=== PATIENT | male | born 1960 | race Caucasian/White ===

== ENCOUNTER → 2018-08-15 | Outpatient (CLI) | payer MEDICARE, BC ==
--- NOTE | 2018-08-27 21:04 | ENG ---
ELECTRONYSTAGMOGRAM REPORT ATTENDING PHYSICIAN: Dr. Bronson Farfan. VNG INDICATIONS: A 58-year-old male with vertigo for 1 year, gradual onset, occurring in spells lasting 15-20 seconds each and can be positionally triggered by just about any position except rolling over in bed. No associated hearing loss with pain in the right ear and tinnitus in both ears. VNG FINDINGS: Saccades shows fair peak velocities season, poor accuracies and latencies. Gaze with fixation shows no nystagmus in any of the directions of gaze including centrally with vision denied. Tracking shows no significant break-ups. Optokinetic nystagmus shows significant asymmetry more than 50% at faster speeds on the right. Static position testing shows no nystagmus in any of the positions tested including sitting, supine, head right and left, eyes opened and with vision denied. Muldrow-Hallpike maneuvers could not be completed due to patient back pain. Caloric testing shows bilateral caloric weakness. IMPRESSION: This is an abnormal VNG study. Central nervous system dysfunction is suggested by an abnormal saccades and abnormal asymmetric optokinetic response. A vestibular dysfunction could not be excluded due to bilateral caloric weakness. Another test such as head thrust test or if available active and passive rotation testing is required to confirm presence of bilateral vestibular dysfunction. Clinical correlation advised. MMODL / IJN: [id number] /
== END | disposition home or self-care (01) ==
LOC: NEUROMAIN 08:50
PROVIDERS: ATTEND Otolaryngology
DX: R94.121 Abnormal vestibular function study (principal)
CPT/HCPCS: 92537; 92540

== ENCOUNTER 2018-08-27 10:21 | Day surgery (SDC) | payer MEDICARE, BC ==
[2018-08-24 09:33] VITALS: BMI 31.3
[~2018-08-27 10:21] MED LIST: DEXAMETHASONE SOD PHOSPHATE 10 MG/ML 1 ML VIAL IV ONE; HYDROmorphone 0.5 MG/0.5 ML SYRINGE IVP PRN; LACTATED RINGERS 1,000 ML IV SCH; MIDAZOLAM 2 MG/2 ML VIAL IV PRN; ONDANSETRON 4 MG/2 ML VIAL IVP ONE; Pre Op ABX Message 1 EACH MISC MISCELLANE ONE; SCOPOLAMINE 1.5MG/72HR PATCH TRANSDERM ONE
[2018-08-27 11:07] VITALS: RESP 18; TEMP 98.1
[2018-08-27 11:17] LABS: Glucose,Whole Blood 244 mg/dL (75-99)
[2018-08-27] MEDS ORDERED: SODIUM CHLORIDE 0.9% 500 ML 500 ML IV ONE (11:20)
--- NOTE | 2018-08-27 11:41 | P.ONQ ---
Anesthesiology Proc Note - PNB - Peripheral Nerve Block Performed Right Axillary Single Time Out Performed: Yes Procedure Start Time: :29 Procedure Stop Time: :38 Indication: Acute Post-Operative Pain, Requested by physician (Dr García) Sedation Type: Sedate with meaningful contact maintained Preparation: Sterile Prep Position: Supine Catheter: None Needle Types: Facet Needle Size: 100mm (4") Needle Gauge: 21 Technique: Ultrasound (Image saved in chart) Injectate: 2.0% Lidocaine (see comment for volume) (10 ml) Blood Aspirated: No Pain Paresthesia on Injection Noted: No Resistance on Injection: Normal Events: Uneventful and Well Tolerated
[2018-08-27] MEDS ORDERED: ROPIVACAINE 5 MG/ML 30 ML VIAL MISCELLANE ONE ×2 (12:04→12:30)
[2018-08-27] MEDS ORDERED: LIDOCAINE 2% (PF) 20 MG/ML 10 ML AMP SQ ONE ×2 (12:04→12:30)
[2018-08-27] MEDS ORDERED: PROPOFOL 10 MG/ML 20 ML VIAL IV ONE (12:41)
[2018-08-27] MEDS ORDERED: hydrALAZINE HCL 20 MG/ML 1 ML VIAL ONE (12:41)
[2018-08-27] MEDS ORDERED: fentaNYL (PF) 50 MCG/ML 2 ML AMP ONE (12:41)
[2018-08-27] MEDS ORDERED: LIDOCAINE 1% INJ 10MG/ML (20 ML MDV) ONE ×2 (12:41)
[2018-08-27] MEDS ORDERED: MIDAZOLAM 2 MG/2 ML VIAL ONE (12:41)
[2018-08-27] MEDS ORDERED: LABETALOL 5 MG/ML VIAL MDV ONE (12:41)
[2018-08-27] MEDS ORDERED: ROPIVACAINE 5 MG/ML 30 ML VIAL ONE (12:41)
[2018-08-27 14:06] LABS: Glucose,Whole Blood 241 mg/dL (75-99)
[2018-08-27 14:13] VITALS: BP 139/70; PULSE 73
--- NOTE | 2018-08-27 19:43 | OP ---
OPERATIVE REPORT DATE OF SERVICE: 08/27/2018 PREOPERATIVE DIAGNOSES: 1. Dupuytren's contracture, left hand, left ring finger, left little finger, and left thumb. 2. Carpal tunnel syndrome, left wrist. FINAL DIAGNOSES: 1. Dupuytren's contracture left hand, left ring finger, left little finger, and left thumb. 2. Carpal tunnel syndrome left wrist. 3. 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 PROCEDURE PERFORMED: 1. Excision of Dupuytren's tissue, palm of the left hand, left little finger, left ring finger and left thumb. 2. Neurolysis, digital nerve to the left little finger. 3. Carpal tunnel release, left wrist. 4. Arthrotomy and release of the check rein ligaments volar PIP joint, left little finger. GROSS PATHOLOGY: This was an extensive amount of Dupuytren's causing contractures of the ring and little at the PIP joints. There was also a band to the thenar eminence restricting the range of motion of his thumb. At the completion of procedure, his digital nerves were in view for the ring and little fingers. A limited approach was taken to the thenar eminence and the thumb. PROCEDURE: 58-year-old man was taken operative suite and given IV sedation to supplement axillary block performed by Department of Anesthesia in the preop holding area, which worked very well. His hand was prepped and draped in usual manner. It was elevated, exsanguinated and cuff was inflated to 250 mmHg. A standard open carpal tunnel incision through a mini open incision was performed in the mid proximal palm. Both palmar fascia and transverse carpal ligaments were incised under direct vision. Limited view of the carpal canal demonstrated no abnormality. Attention was then turned to the Dupuytren's. Beginning proximally and extending distally, zigzag incision was made across the palm into the little finger. It was extended toward the ring finger. The digital nerves and vessels were identified proximally and traced distally under 4.5 loupe magnification as the palmar fascia was excised with a combination of blunt and sharp dissection. As the dissection was carried into the base of the ring finger, I was then able to close, manipulate the PIP joint. I suspect he had developed a joint contracture with limited Dupuytren's at the PIP joint per se. There was extensive Dupuytren's in the little finger beyond the PIP joint. After it was excised, we still had a 40 degree joint contracture. Therefore, exposure at the volar PIP joint on either side of flexor tendons was performed to incise and release the check rein ligaments. Gentle manipulation then allowed into the thumb and the extension. Cut along the thenar eminence there was a palpable cord. A limited longitudinal incision was made to expose the Dupuytren's fascia which was incised transversely. All wounds were thoroughly irrigated. Tourniquet was released. Hemostasis acquired with pressure and electrocautery. Wounds were closed with interrupted and running 5-0 nylon suture. Several drainage areas were left open by design. Soft bulky dressing was applied. The patient was taken to the recovery room in satisfactory condition. MMODL / IJN: [id number] /
--- NOTE | 2018-08-29 12:38 | CDI ---
Outpatient Documentation Clarification Form Date: 08/29/18 CDS/Mechanical Service Representative Name: Keyana Redmond Phone: If any questions, call Estephania Barrera Water Pumper at [phone] Patient Name: Francis Lundy Admit Date: 08/27/18 Discharge Date: 08/27/18 ATTENTION: The [facility] Coding Staff appreciate your assistance in clarifying documentation. Please respond to the clarification below the line at the bottom and electronically sign. The [facility] Coding staff will review the response and follow-up if needed. Please note: Queries are made part of the Legal Health Record. If you have any questions, please contact the Water Pumper. Dear Dr. García, The anesthesiology note states that the anesthesiologist performed a right axillary block for the purposes of post-op pain management. The patient had surgery on his left wrist and hand. Was there a different purpose for the block or was it actually performed on the left, and not right? Thank you for your kind consideration. MTDD
== END 2018-08-27 15:26 | disposition home or self-care (01) ==
LOC: OR 10:21
PROVIDERS: ATTEND Orthopaedic Surgery Hand Surgery
DX: M72.0 Palmar fascial fibromatosis [Dupuytren] (principal); G56.03 Carpal tunnel syndrome, bilateral upper limbs; M19.042 Primary osteoarthritis, left hand; M19.041 Primary osteoarthritis, right hand; M21.242 Flexion deformity, left finger joints; I12.0 Hypertensive chronic kidney disease with stage 5 chronic kidney disease or end stage renal disease; N18.6 End stage renal disease; E11.22 Type 2 diabetes mellitus with diabetic chronic kidney disease; E11.40 Type 2 diabetes mellitus with diabetic neuropathy, unspecified; E78.5 Hyperlipidemia, unspecified; E03.9 Hypothyroidism, unspecified; H40.9 Unspecified glaucoma; F32.9 Major depressive disorder, single episode, unspecified; R45.0 Nervousness; R26.81 Unsteadiness on feet; G47.33 Obstructive sleep apnea (adult) (pediatric); F41.9 Anxiety disorder, unspecified; Z79.4 Long term (current) use of insulin; Z79.899 Other long term (current) drug therapy; Z79.52 Long term (current) use of systemic steroids
CPT/HCPCS: 64721; 26123; 26125 ×2; 64417; 88304; 84132; J2250; J0360; J1100; J2405; J2001; J3010; J2795; J2704

== ENCOUNTER → 2018-10-02 | Outpatient (CLI) | payer MEDICARE, BC ==
--- NOTE | 2018-10-02 14:34 | MR ---
EXAMINATION TYPE: MR iac wo con DATE OF EXAM: 10/02/2018 COMPARISON: NONE HISTORY: Vertigo and vestibular dysfunction ataxia per order. Dizziness per patient. TECHNIQUE: Multiplanar, multisequence imaging of the brain and brainstem is performed without IV cont rast. IV contrast cannot be given due to diminished renal function, GFR less than 30. Acoustic nerve disorder protocol. FINDINGS: Diffusion weighted images demonstrate no evidence of a recent infarct or other diffusion abnormality. There is no worrisome extra-axial fluid collection. There is ventricular and sulcal prominence consis tent with mild diffuse age-related cerebral atrophy. There are scattered small foci of T2 hyperintens ity seen throughout the superficial, deep, and periventricular white matter. Lesions are nonspecific in appearance and distribution but most likely on basis of product of chronic small vessel ischemic c hange in patient of this age. There is some involvement in the caleb are noted. Midline structures demonstrate normal morphology. The craniocervical junction appears within normal limits. Normal vascular flow voids are present. The visualized sinuses are clear and the globes are i ntact. No significant fluid signal seen in bilateral mastoid air cells. Vestibulocochlear complexes are symm etric and felt within normal limits IMPRESSION: Suboptimal without IV contrast. No suspicious mastoid fluid signal. Background mild diffu se age-related cerebral atrophy and moderate nonspecific white matter changes most likely on basis of product of chronic small vessel ischemic change in patient of this age.
== END | disposition home or self-care (01) ==
LOC: RADMRIMAIN 12:38
PROVIDERS: ATTEND Otolaryngology
DX: G31.1 Senile degeneration of brain, not elsewhere classified (principal); R90.89 Other abnormal findings on diagnostic imaging of central nervous system; R27.0 Ataxia, unspecified; H81.13 Benign paroxysmal vertigo, bilateral
CPT/HCPCS: 70551; 82565

== ENCOUNTER → 2019-02-04 | Outpatient (CLI) | payer MEDICARE, BC ==
--- NOTE | 2019-02-04 09:38 | CT ---
EXAMINATION TYPE: CT brain w con DATE OF EXAM: 02/04/2019 COMPARISON: None HISTORY: Headaches and dizziness CT DLP: 1064.3 mGycm Automated exposure control for dose reduction was used. CONTRAST: CT scan of the head is performed with IV Contrast, patient injected with 100 mL of Isovue 300. FINDINGS: There is no abnormal enhancing mass or midline shift identified. The ventricles and sulci are mildly enlarged for the patient's age group. Periventricular white matter ischemic demyelination noted. The globes are intact and the visualized sinuses are clear. IMPRESSION: No enhancing lesion identified. No distinct acute process seen.
== END | disposition home or self-care (01) ==
LOC: RADCTMAIN 08:38
PROVIDERS: ATTEND Internal Medicine Nephrology
DX: N18.6 End stage renal disease (principal)
CPT/HCPCS: 70460; Q9967

== ENCOUNTER 2020-10-20 02:51 | Inpatient (IN) | payer MEDICARE, BC ==
--- NOTE | 2020-10-20 02:54 | ED ---
Recheck HPI - General Stated Complaint: Infection Time Seen by Provider: 10/20/20 02:53 Source: RN notes reviewed, old records reviewed Limitations: no limitations - History of Present Illness Initial Comments: This is a 60-year-old male to the ER for evaluation patient to the ER for evaluation regards to right thumb injury and pain, swelling. Patient admits to some injury from hitting it with a hammer a few weeks ago. Patient having persistent pain he did lose the nail and presents to multiple ERs in the last 2 days. Patient did have x-rays confirming possible loss and myelitis is transferred her facility rule out osteomyelitis Complaint: wound re-check -: days(s) Returns Today for: persistent/worsening pain related to initial visit Symptoms Since Prior Visit: worsening pain Context: planned re-check Associated Symptoms: none Treatments Prior to Arrival: Given Pain Meds on - Related Data Home Medications Medication Instructions Recorded Confirmed Atorvastatin [Lipitor] 20 mg PO HS 08/24/18 08/27/18 Calcium Carb-Mag Carb-Folic 1 each PO TID-W/MEALS 08/24/18 08/27/18 [Magnebind 400 Rx] Citalopram Hydrobromide [CeleXA] 40 mg PO HS 08/24/18 08/24/18 Insulin Detemir [Levemir Flextouch] 50 units SQ HS 08/24/18 08/27/18 Insulin Lispro [humaLOG Kwikpen] 60 unit SQ TID-W/MEALS 08/24/18 08/27/18 Losartan Potassium [Cozaar] 50 mg PO HS 08/24/18 08/27/18 Omeprazole [PriLOSEC] 20 mg PO HS 08/24/18 08/24/18 Prednisolone Acetate/Pf 1 drop RIGHT EYE BID PRN 08/24/18 08/27/18 [Prednisolone Acet 1% Eye Drop] Renal Vitamin 1 tab PO HS 08/24/18 hydrALAZINE HCL [Apresoline] 25 mg PO TID 08/24/18 08/27/18 Allergies Allergy/AdvReac Type Severity Reaction Status Date / Time No Known Allergies Allergy Verified 08/24/18 08:24 Review of Systems ROS Statement: Those systems with pertinent positive or pertinent negative responses have been documented in the HPI. ROS Other: All systems not noted in ROS Statement are negative. Past Medical History Past Medical History: Blood Disorder, Cancer, Diabetes Mellitus, Eye Disorder, GERD/Reflux, Hypertension, Renal Disease, Sleep Apnea/CPAP/BIPAP Additional Past Medical History / Comment(s): HEMODIALYSIS EVERY MONDAY,MONDAY AND MONDAY., FISTULA RIGHT ARM, HX OF SKIN CANCER., USES C-PAP MACHINE, NEUROPATHY IN HANDS AND FEET, OCCASIONAL DIZZINESS AND BALANCE PROBLEMS., HX OF FALLS., GLAUCOMA RIGHT EYE., STENT RIGHT EYE., SORES ON LEGS., WARM ANTIBODY ANEMIA. History of Any Multi-Drug Resistant Organisms: None Reported Past Surgical History: Back Surgery Additional Past Surgical History / Comment(s): PERITONEAL DIALYSIS CATHETERS, DETACHED RETINA MARTHA, GLAUCOMA PROCEDURES, STENT RIGHT EYE., CATARACTS, FISTULA RIGHT ARM. Past Anesthesia/Blood Transfusion Reactions: No Reported Reaction Past Psychological History: Depression Past Alcohol Use History: None Reported Past Drug Use History: None Reported - Past Family History Brother(s) Family Medical History: Cancer Additional Family Medical History / Comment(s): 1 BROTHER STOMACH CANCER. 1 BROTHER THROAT CANCER General Exam General appearance: alert, in no apparent distress Head exam: Present: atraumatic, normocephalic, normal inspection Eye exam: Present: normal appearance, PERRL, EOMI. Absent: scleral icterus, conjunctival injection, periorbital swelling ENT exam: Present: normal exam, mucous membranes moist Neck exam: Present: normal inspection. Absent: tenderness, meningismus, lymphadenopathy Respiratory exam: Present: normal lung sounds bilaterally. Absent: respiratory distress, wheezes, rales, rhonchi, stridor Cardiovascular Exam: Present: regular rate, normal rhythm, normal heart sounds. Absent: systolic murmur, diastolic murmur, rubs, gallop, clicks GI/Abdominal exam: Present: soft, normal bowel sounds. Absent: distended, tenderness, guarding, rebound, rigid Extremities exam: Present: normal inspection, full ROM, normal capillary refill. Absent: tenderness, pedal edema, joint swelling, calf tenderness Right General: Present: abrasion (Moroccan from hammer), nail injury (#) (Right thumb), avulsion (Of right thumb nail) Shoulder Exam: Present: normal inspection Upper Arm exam: Present: normal inspection Elbow exam: Present: normal inspection Forearm Wrist exam: Present: normal inspection Hand Wrist exam: Present: normal inspection Back exam: Present: normal inspection Neurological exam: Present: alert, oriented X3, CN II-XII intact Psychiatric exam: Present: normal affect, normal mood Skin exam: Present: warm, dry, intact, normal color. Absent: rash Course Vital Signs 10/20/20 02:53 Temperature 98.3 F Pulse Rate 86 Respiratory 17 Rate Blood Pressure 127/77 O2 Sat by Pulse 98 Oximetry - Reevaluation(s) Reevaluation #1: 10/20/20 03:15 Medical records reviewed 10/20/20 03:15 Transferring paperwork is reviewed with no white count 10/20/20 03:15 Spoke with transferring physician regarding transfer Medical Decision Making - Medical Decision Making 60 male DF for evaluation patient Dese for evaluation of right thumb injury was actually accepted in transfer for orthopedic consult. Patient had x-rays showing possible osteomyelitis of right thumb - Radiology Data Radiology results: report reviewed (Possible osteomyelitis right thumb) Disposition Clinical Impression: Cellulitis of right thumb Narrative: ro Osteomyelitis Disposition: ADMITTED IP TO THIS [facility] Condition: Good Is patient prescribed a controlled substance at d/c from ED?: No Referrals: Chris Mackey MD [Primary Care Provider] - 1-2 days
[2020-10-20] MEDS ORDERED: SODIUM CHLORIDE 0.9% 1,000 ML IV ONE (03:11)
[2020-10-20] MEDS ORDERED: cefTRIAXone IN SWFI 1,000 MG/10 ML SYRINGE IVP STA (03:11)
[2020-10-20] MEDS ORDERED: MORPHINE SULFATE 4 MG/ML SYRINGE IVP STA (03:11)
--- NOTE | 2020-10-20 04:00 | P.HPIM ---
History of Present Illness H&P Date: 10/20/20 Patient is a 60-year-old male with a PMH of ESRD on hemodialysis (TTS), type II DM, hypertension, and peripheral neuropathy who was transferred to the emergency room from [facility] for evaluation of the right thumb. The patient reports that he injured his right thumb roughly 2 months ago when he accidentally smashed it with a hammer while working on some things around the house. He did not seek medical attention at that time, until his nail fell off and the pain became significantly worse. He reports that his right hand also seemed more swollen and painful than usual. He reports the pain as intermittent, located at the right thumb, nonradiating, 10 out of 10 at maximal intensity, currently at a 4 out of 10, with no clear alleviating or exacerbating features. Patient also reports subjective fevers at home. The patient also reports that over the past 1-2 months, he has been experiencing 3 pillow orthopnea and PND. He notes chronic LE edema unchanged from prior. Denied chest pain, shortness of breath, nausea, vomiting, diaphoresis, abdominal pain, or diarrhea. The patient had undergone an extensive evaluation at [facility] which was all reviewed in the chart. Laboratory evaluation had revealed obesity count of 8.5, hemoglobin 10.4, platelets 143, sodium 127, potassium 5.2, chloride 90, CO2 28, BUN 38, creatinine 4.33, glucose 336. A right hand x-ray had revealed soft tissue swelling with erosive changes at the first distal phalanx which was no nspecific with findings possibly representing osteomyelitis versus less likely trauma. Review of Systems Pertinent positives and negatives as discussed in HPI, a complete review of systems was performed and all other systems are negative. Past Medical History Past Medical History: Blood Disorder, Cancer, Diabetes Mellitus, Eye Disorder, GERD/Reflux, Hypertension, Renal Disease, Sleep Apnea/CPAP/BIPAP Additional Past Medical History / Comment(s): HEMODIALYSIS EVERY MONDAY,MONDAY AND MONDAY., FISTULA RIGHT ARM, HX OF SKIN CANCER., USES C-PAP MACHINE, NEUROPATHY IN HANDS AND FEET, OCCASIONAL DIZZINESS AND BALANCE PROBLEMS., HX OF FALLS., GLAUCOMA RIGHT EYE., STENT RIGHT EYE., SORES ON LEGS., WARM ANTIBODY ANEMIA. History of Any Multi-Drug Resistant Organisms: None Reported Past Surgical History: Back Surgery Additional Past Surgical History / Comment(s): PERITONEAL DIALYSIS CATHETERS, DETACHED RETINA MARTHA, GLAUCOMA PROCEDURES, STENT RIGHT EYE., CATARACTS, FISTULA RIGHT ARM. Past Anesthesia/Blood Transfusion Reactions: No Reported Reaction Past Psychological History: Depression Past Alcohol Use History: None Reported Past Drug Use History: None Reported - Past Family History Brother(s) Family Medical History: Cancer Additional Family Medical History / Comment(s): 1 BROTHER STOMACH CANCER. 1 BROTHER THROAT CANCER Medications and Allergies Home Medications Medication Instructions Recorded Confirmed Type Atorvastatin [Lipitor] 20 mg PO HS 08/24/18 08/27/18 History Calcium Carb-Mag Carb-Folic 1 each PO TID-W/MEALS 08/24/18 08/27/18 History [Magnebind 400 Rx] Citalopram Hydrobromide [CeleXA] 40 mg PO HS 08/24/18 08/24/18 History Insulin Detemir [Levemir Flextouch] 50 units SQ HS 08/24/18 08/27/18 History Insulin Lispro [humaLOG Kwikpen] 60 unit SQ TID-W/MEALS 08/24/18 08/27/18 History Losartan Potassium [Cozaar] 50 mg PO HS 08/24/18 08/27/18 History Omeprazole [PriLOSEC] 20 mg PO HS 08/24/18 08/24/18 History Prednisolone Acetate/Pf 1 drop RIGHT EYE BID PRN 08/24/18 08/27/18 History [Prednisolone Acet 1% Eye Drop] Renal Vitamin 1 tab PO HS 08/24/18 History hydrALAZINE HCL [Apresoline] 25 mg PO TID 08/24/18 08/27/18 History Allergies Allergy/AdvReac Type Severity Reaction Status Date / Time No Known Allergies Allergy Verified 08/24/18 08:24 Physical Exam Vitals: Vital Signs Temp Pulse Resp BP Pulse Ox 10/20/20 02:53 98.3 F 86 17 127/77 98 Intake and Output 10/19/20 10/19/20 10/20/20 14:59 22:59 06:59 Other: Weight 124 kg General: non toxic, no distress, appears at stated age, obese Derm: Right thumb missing male with granulation tissue with erythema and tenderness, no unusual ecchymoses, warm, dry Head: atraumatic, normocephalic, symmetric Eyes: EOMI, no lid lag, anicteric sclera, pupils equal round reactive to light ENT: Nose and ears atraumatic, no thrush, no pharyngeal erythema Neck: No thyromegaly, no cervical lymphadenopathy, trachea midline, supple Mouth: no lip lesion, mucus membranes moist Cardiovascular: S1S2 reg, no murmur, positive posterior tibial pulse bilateral, 1+ bilateral lower extremity pitting edema with chronic venous stasis changes, capillary refill less than 2 seconds Lungs: CTA bilateral, no rhonchi, no rales , no accessory muscle use Abdominal: soft, nontender to palpation, no guarding, no appreciable organomegaly, normal bowel sounds Ext: Right forearm AV fistula with palpable thrill, right hand swelling with right thumb tenderness noted, decreased range of motion for passive flexion of right hand and digits, no gross muscle atrophy, muscle strength 5 out of 5 in all 4 extremities grossly, no contractures Neuro: CN II-XI grossly intact, light touch intact all 4 extremities, finger to nose within normal limits Psych: Alert, oriented, appropriate affect Assessment and Plan Plan: Hx of R hand trauma, suspected osteomyelitis -Continue ceftriaxone for now -Orthopedic surgery consult -Follow up blood cultures Orthopnea and PND, suspected CHF with underlying ESRD -Obtain echocardiogram -Start Lasix 40 mg q8h -- patient continues to produce urine Type II DM -Check A1c -Lispro insulin sliding scale with blood glucose monitoring ESRD on HD -Last session was today -Patient will need resumption Chronic conditions: HTN, HLD -C/w home meds DVT prophylaxis -Heparin subq The patient is admitted with an anticipated greater than 2 midnight stay for evaluation of R hand osteomyelitis CODE STATUS: Full Code Discussed with: Patient, RN Anticipated discharge date: 2-[address]: Home A total of 40 minutes was spent on the care of this complex patient more than 50% of the time was spent in counseling and care coordination.
[2020-10-20 06:07] LABS: HCT 31.4 % (39.0-53.0); HGB 10.6 gm/dL (13.0-17.5); MCH 30.1 pg (25.0-35.0); MCHC 33.8 g/dL (31.0-37.0); MCV 89.2 fL (80.0-100.0); Mean Platelet Volume 7.7; Platelet Count 140 k/uL (150-450); RBC 3.52 m/uL (4.30-5.90); RDW 14.9 % (11.5-15.5); WBC 8.9 k/uL (3.8-10.6)
[2020-10-20 07:52] LABS: Glucose,Whole Blood 130 mg/dL (75-99)
[2020-10-20] MEDS ORDERED: FUROSEMIDE 10 MG/ML 4 ML VIAL IV SCH (08:00)
[2020-10-20] MEDS: INSULIN ASPART (NovoLOG) 100 UNIT/ML VIAL SQ SCH ×3 (08:28→18:09)
[2020-10-20] MEDS: HEPARIN SODIUM,PORCINE 5,000 UNIT/ML 1 ML VIAL SQ SCH ×2 (08:37→16:56)
[2020-10-20] MEDS: MORPHINE SULFATE 4 MG/ML SYRINGE IVP PRN ×2 (08:50→19:34)
[2020-10-20 10:31] LABS: African American GFR (CKD) 13.9 (60.0-200.0); Albumin/Globulin Ratio 1.82 (1.60-3.17); Anion Gap 11.2 mmol/L (4.00-12.00); BUN/Creat Ratio 9.39 Ratio (12.00-20.00); Calcium 8.8 mg/dL (8.7-10.3); Carbon Dioxide 27.8 mmol/L (21.6-31.8); Globulin 2.2 g/dL (1.6-3.3); Potassium 5.1 mmol/L (3.5-5.5); Total Bilirubin 0.7 mg/dL (0.3-1.2); Total Protein 6.2 g/dL (6.2-8.2)
--- NOTE | 2020-10-20 11:12 | P.NPCON ---
History of Present Illness - Reason for Consult end stage renal disease - History of Present Illness Reason for consultation: End-stage renal disease History of present illness: Patient is a 60-year-old male seen in consultation for end-stage renal disease. He is maintained on hemodialysis on Monday schedule via right upper extremity AV fistula. Patient presented to the hospital for evaluation of his right thumb. Patient states he injured his thumb about 2 months ago by hitting it with a hammer at his house. Patient was having more pain and swelling in his right hand. He denies any drainage. Patient states his nail fell off. Weeks ago. He had an x-ray done which was concerning for osteomyelitis and was subsequently sent here for further care. He did have hemodialysis yesterday due to the holiday schedule. He is currently receiving IV Lasix as well as IV fluids. Denies chest pain or shortness of breath. No fever or chills. No vomiting. Blood pressure is stable. No abdominal pain. Vital signs are stable. General: The patient appeared well nourished and normally developed. HEENT: Head exam is unremarkable. Neck is without jugular venous distension. LUNGS: Breath sounds decreased. HEART: Rate and Rhythm are regular. ABDOMEN: Soft, nontender. EXTREMITITES: Trace edema. Chronic changes noted. Right hand swollen. Right thumb without any drainage. Discoloration noted. Past Medical History Past Medical History: Blood Disorder, Cancer, Diabetes Mellitus, Eye Disorder, GERD/Reflux, Hypertension, Renal Disease, Sleep Apnea/CPAP/BIPAP Additional Past Medical History / Comment(s): HEMODIALYSIS EVERY MONDAY,MONDAY AND MONDAY., FISTULA RIGHT ARM, HX OF SKIN CANCER., USES C-PAP MACHINE, NEUROPATHY IN HANDS AND FEET, OCCASIONAL DIZZINESS AND BALANCE PROBLEMS., HX OF FALLS., GLAUCOMA RIGHT EYE., STENT RIGHT EYE., SORES ON LEGS., WARM ANTIBODY ANEMIA. History of Any Multi-Drug Resistant Organisms: None Reported Past Surgical History: Back Surgery Additional Past Surgical History / Comment(s): PERITONEAL DIALYSIS CATHETERS, DETACHED RETINA MARTHA, GLAUCOMA PROCEDURES, STENT RIGHT EYE., CATARACTS, FISTULA RIGHT ARM. Past Anesthesia/Blood Transfusion Reactions: No Reported Reaction Past Psychological History: Depression Past Alcohol Use History: None Reported Past Drug Use History: None Reported - Past Family History Brother(s) Family Medical History: Cancer Additional Family Medical History / Comment(s): 1 BROTHER STOMACH CANCER. 1 BROTHER THROAT CANCER Medications and Allergies Home Medications Medication Instructions Recorded Confirmed Type Atorvastatin [Lipitor] 20 mg PO HS 08/24/18 10/20/20 History Citalopram Hydrobromide [CeleXA] 40 mg PO HS 08/24/18 10/20/20 History Omeprazole [PriLOSEC] 20 mg PO HS 08/24/18 10/20/20 History Amoxic-Pot Clav 500-125 mg 1 tab PO Q12HR 10/20/20 10/20/20 History [Augmentin 500-125 mg] Calcium Acetate [Phoslo] 667 mg PO AC-TID 10/20/20 10/20/20 History Cyclobenzaprine [Flexeril] 10 mg PO HS PRN 10/20/20 10/20/20 History Furosemide [Lasix] 120 mg PO BID 10/20/20 10/20/20 History Losartan Potassium [Cozaar] 25 mg PO HS 10/20/20 10/20/20 History Magnebind 250/300mg 1 tab PO TID 10/20/20 10/20/20 History Pregabalin [Lyrica] 100 mg PO BID 10/20/20 10/20/20 History Relion Novolin N 30 units SQ BID 10/20/20 10/20/20 History Relion Novolin R 20 units SQ AC-TID 10/20/20 10/20/20 History Allergies Allergy/AdvReac Type Severity Reaction Status Date / Time No Known Allergies Allergy Verified 10/20/20 08:26 Physical Exam Vitals: Vital Signs Temp Pulse Pulse Resp BP BP Pulse Ox 10/20/20 06:28 97.4 F L 58 L 18 155/75 96 10/20/20 05:47 97.8 F 47 L 18 133/70 100 10/20/20 03:57 97.8 F 47 L 18 133/70 100 10/20/20 03:34 80 17 124/74 97 10/20/20 02:53 98.3 F 86 17 127/77 98 Intake and Output 10/19/20 10/20/20 10/20/20 22:59 06:59 14:59 Other: # Voids 1 Weight 124 kg Results - Lab Results Most recent lab results Calcium 8.8 mg/dL (8.7-10.3) 10/20/20 05:29 10/20/20 05:29 10/20/20 05:29 Assessment and Plan Plan: Assessment: 1. End-stage renal disease maintained on hemodialysis on Monday schedule. 2. Right thumb cellulitis, possibly osteomyelitis maintained on antibiotics. O rthopedic surgery consulted. 3. Diabetes mellitus. 4. Chronic kidney disease mineral bone disease. 5. Hypertension with chronic kidney disease. Stable. Plan: Hemodialysis tomorrow. Hep-Lock IV fluids. Change IV Lasix to oral. Check phosphorus level. Resume binders. Thank you for the consultation. I will continue to follow the patient with you during his hospital stay.
[2020-10-20 11:46] LABS: Glucose,Whole Blood 220 mg/dL (75-99)
--- NOTE | 2020-10-20 12:56 | P.PN ---
Progress Note - Text Progress Note Date: 10/20/20 I saw Mr. Lundy today at bedside and his only complaint to me today was pain and swelling in his thumb and hand. Patient is on antibiotics with plans to be seen by ortho for possible operation if osteomyelitis is suspected. Agree with abx and lasix. Will order RUE Duplex.
[2020-10-20] MEDS: CALCIUM ACETATE 667 MG TAB PO SCH ×2 (13:03→18:21)
--- NOTE | 2020-10-20 14:08 | US ---
EXAMINATION TYPE: US venous doppler duplex UE RT DATE OF EXAM: 10/20/2020 COMPARISON: NONE CLINICAL HISTORY: RUE swelling. SIDE PERFORMED: Right Right Arm: Negative for DVT IMPRESSION: No evidence for DVT right upper extremity.
--- NOTE | 2020-10-20 15:42 | P.CNOR ---
History of Present Illness - HPI Consult date: 10/20/20 History of present illness: This is a 60-year-old male who was admitted for a right thumb infection. Patient is seen and evaluated at bedside today. Patient was transferred from [facility] emergency room due to right thumb infection. Patient states that he smashed his right thumb with a hammer 2 months ago and did not seek any medi miky attention at that time. Patient states that recently his nail fell off and he was concerned for infection. Patient states that he always has difficulty fully extending the fingers of the right hand. Patient's past medical history significant for end-stage renal disease with hemodialysis, type 2 diabetes mellitus, hypertension and peripheral neuropathy. Patient denies any fever/chills, weakness or tingling. Review of Systems See HPI. Past Medical History Past Medical History: Blood Disorder, Cancer, Diabetes Mellitus, Eye Disorder, GERD/Reflux, Hypertension, Renal Disease, Sleep Apnea/CPAP/BIPAP Additional Past Medical History / Comment(s): HEMODIALYSIS EVERY MONDAY,MONDAY AND MONDAY., FISTULA RIGHT ARM, HX OF SKIN CANCER., USES C-PAP MACHINE, NEUROPATHY IN HANDS AND FEET, OCCASIONAL DIZZINESS AND BALANCE PROBLEMS., HX OF FALLS., GLAUCOMA RIGHT EYE., STENT RIGHT EYE., SORES ON LEGS., WARM ANTIBODY ANEMIA. History of Any Multi-Drug Resistant Organisms: None Reported Past Surgical History: Back Surgery Additional Past Surgical History / Comment(s): PERITONEAL DIALYSIS CATHETERS, DETACHED RETINA MARTHA, GLAUCOMA PROCEDURES, STENT RIGHT EYE., CATARACTS, FISTULA RIGHT ARM. Past Anesthesia/Blood Transfusion Reactions: No Reported Reaction Past Psychological History: Depression Past Alcohol Use History: None Reported Past Drug Use History: None Reported - Past Family History Brother(s) Family Medical History: Cancer Additional Family Medical History / Comment(s): 1 BROTHER STOMACH CANCER. 1 BROTHER THROAT CANCER Medications and Allergies Home Medications Medication Instructions Recorded Confirmed Type Atorvastatin [Lipitor] 20 mg PO HS 08/24/18 10/20/20 History Citalopram Hydrobromide [CeleXA] 40 mg PO HS 08/24/18 10/20/20 History Omeprazole [PriLOSEC] 20 mg PO HS 08/24/18 10/20/20 History Amoxic-Pot Clav 500-125 mg 1 tab PO Q12HR 10/20/20 10/20/20 History [Augmentin 500-125 mg] Calcium Acetate [Phoslo] 667 mg PO AC-TID 10/20/20 10/20/20 History Cyclobenzaprine [Flexeril] 10 mg PO HS PRN 10/20/20 10/20/20 History Furosemide [Lasix] 120 mg PO BID 10/20/20 10/20/20 History Losartan Potassium [Cozaar] 25 mg PO HS 10/20/20 10/20/20 History Magnebind 250/300mg 1 tab PO TID 10/20/20 10/20/20 History Pregabalin [Lyrica] 100 mg PO BID 10/20/20 10/20/20 History Relion Novolin N 30 units SQ BID 10/20/20 10/20/20 History Relion Novolin R 20 units SQ AC-TID 10/20/20 10/20/20 History Allergies Allergy/AdvReac Type Severity Reaction Status Date / Time No Known Allergies Allergy Verified 10/20/20 08:26 Physical Examination On exam patient is lying comfortably in bed in no acute distress. Patient is alert and oriented. There is mild swelling of the right hand. Patient is unable to fully extend the fingers of the right hand, but states that this is chronic for him. There is no pain with attempts to passively extend the fingers of the right hand. There is no tenderness to palpation over the right hand. There is no erythema. There is swelling of the right thumb. No active drainage. No fluctuance. The right upper extremity is warm and well-perfused. Results X-rays of the right hand reveal possible osteomyelitis of the right thumb. - Labs Labs: Abnormal Lab Results - Last 24 Hours (Table) 10/20/20 10/20/20 10/20/20 Range/Units 05:29 05:29 07:50 RBC 3.52 L (4.30-5.90) m/uL Hgb 10.6 L (13.0-17.5) gm/dL Hct 31.4 L (39.0-53.0) % Plt Count 140 L (150-450) k/uL BUN 46.0 H (9.0-27.0) mg/dL Creatinine 4.9 H (0.6-1.5) mg/dL Est GFR (CKD-EPI)AfAm 13.9 L (60.0-200.0) Est GFR (CKD-EPI)NonAf 12.0 L (60.0-200.0) BUN/Creatinine Ratio 9.39 L (12.00-20.00) Ratio Glucose 156 H (70-110) mg/dL POC Glucose (mg/dL) 130 H (75-99) mg/dL AST 36 H (14-35) U/L Alkaline Phosphatase 135 H (41-126) U/L 10/20/20 Range/Units 11:45 RBC (4.30-5.90) m/uL Hgb (13.0-17.5) gm/dL Hct (39.0-53.0) % Plt Count (150-450) k/uL BUN (9.0-27.0) mg/dL Creatinine (0.6-1.5) mg/dL Est GFR (CKD-EPI)AfAm (60.0-200.0) Est GFR (CKD-EPI)NonAf (60.0-200.0) BUN/Creatinine Ratio (12.00-20.00) Ratio Glucose (70-110) mg/dL POC Glucose (mg/dL) 220 H (75-99) mg/dL AST (14-35) U/L Alkaline Phosphatase (41-126) U/L H & H 10/20/20 Range/Units 05:29 Hgb 10.6 L (13.0-17.5) gm/dL Hct 31.4 L (39.0-53.0) % Result Diagrams: 10/20/20 05:29 10/20/20 05:29 Assessment and Plan (1) Cellulitis of right thumb Current Visit: Yes Status: Acute Code(s): L03.011 - CELLULITIS OF RIGHT FINGER SNOMED Code(s): 55483788963047566 Plan: 1. Imaging is reviewed. Continue IV antibiotics. 2. Rest and elevate for swelling. 3. No surgical intervention planned. Will continue to follow.
[2020-10-20 16:25] LABS: Hemoglobin A1C 9.9 % (4.0-6.0)
[2020-10-20] MEDS ORDERED: CYCLOBENZAPRINE 10 MG TAB PO PRN (16:53)
[2020-10-20] MEDS: FUROSEMIDE 80 MG TAB PO SCH (16:57)
[2020-10-20 16:59] LABS: Glucose,Whole Blood 220 mg/dL (75-99)
[2020-10-20] MEDS ORDERED: CALCIUM ACETATE 667 MG TAB PO SCH (17:30)
[2020-10-20] MEDS: INSULIN REGULAR 100 UNIT/ML VIAL SQ SCH (18:19)
[2020-10-20 19:31] LABS: Glucose,Whole Blood 256 mg/dL (75-99)
[2020-10-20] MEDS: PREGABALIN 100 MG CAP PO SCH (19:32)
[2020-10-20] MEDS ORDERED: ATORVASTATIN 20 MG TAB PO SCH (21:00)
[2020-10-20] MEDS ORDERED: FUROSEMIDE 40 MG TAB PO SCH (21:00)
[2020-10-20] MEDS ORDERED: CITALOPRAM HYDROBROMIDE 20 MG TAB PO SCH (21:00)
[2020-10-20] MEDS ORDERED: PANTOPRAZOLE 40 MG TABLET PO SCH (21:00)
[2020-10-20] MEDS ORDERED: LOSARTAN 25 MG TAB PO SCH (21:00)
[2020-10-20] MEDS: INSULIN NPH 300 UNIT/3 ML VIAL SQ SCH (21:53)
[2020-10-20] MEDS: CALCIUM CARB-MAG CARB-FOLIC 1 EACH TAB PO SCH (21:55)
[2020-10-21] MEDS: HEPARIN SODIUM,PORCINE 5,000 UNIT/ML 1 ML VIAL SQ SCH ×3 (00:03→17:10)
[2020-10-21 07:03] LABS: Glucose,Whole Blood 168 mg/dL (75-99)
[2020-10-21 07:14] LABS: Basophils # (A) 0.1 k/uL (0-0.2); Basophils % (A) 1 %; Eosinophils # (A) 0.1 k/uL (0-0.7); Eosinophils % (A) 2 %; HCT 32.5 % (39.0-53.0); HGB 10.7 gm/dL (13.0-17.5); Lymphocytes # (A) 2.1 k/uL (1.0-4.8); Lymphocytes % (A) 21 %; MCH 29.9 pg (25.0-35.0); MCHC 32.9 g/dL (31.0-37.0); MCV 90.8 fL (80.0-100.0); Mean Platelet Volume 7.7; Monocytes # (A) 0.6 k/uL (0-1.0); Monocytes % (A) 6 %; Neutrophils # (A) 6.6 k/uL (1.3-7.7); Neutrophils % (A) 68 %; Platelet Count 144 k/uL (150-450); RBC 3.58 m/uL (4.30-5.90); RDW 14.8 % (11.5-15.5); WBC 9.7 k/uL (3.8-10.6)
[2020-10-21] MEDS: INSULIN REGULAR 100 UNIT/ML VIAL SQ SCH ×3 (08:38→17:10)
[2020-10-21] MEDS: INSULIN ASPART (NovoLOG) 100 UNIT/ML VIAL SQ SCH ×3 (08:38→17:10)
[2020-10-21] MEDS: CALCIUM ACETATE 667 MG TAB PO SCH ×3 (08:39→17:10)
[2020-10-21] MEDS: CALCIUM CARB-MAG CARB-FOLIC 1 EACH TAB PO SCH ×2 (08:39→17:10)
[2020-10-21] MEDS ORDERED: LOSARTAN 25 MG TAB PO SCH (09:00)
[2020-10-21] MEDS: FUROSEMIDE 80 MG TAB PO SCH ×2 (10:15→17:10)
[2020-10-21] MEDS: PREGABALIN 100 MG CAP PO SCH (10:15)
--- NOTE | 2020-10-21 10:41 | P.PN ---
Subjective Progress Note Date: 10/21/20 This is a 60 year-old male who is admitted for right thumb cellulitis. Patient is seen and evaluated at bedside today. Patient states that his pain is well- controlled and he denies any new complaints today. Objective - Vital Signs Vital signs: Vital Signs Temp 98.1 F 10/21/20 05:10 Pulse 87 10/21/20 05:10 Resp 20 10/21/20 05:10 BP 134/78 10/21/20 05:10 Pulse Ox 98 10/21/20 05:10 Intake & Output 10/20/20 10/21/20 10/21/20 18:59 06:59 18:59 Intake Total 200 Balance 200 Intake: Oral 200 Other: # Voids 1 1 - Exam On exam patient is lying comfortably in bed in no acute distress. Patient is alert and oriented. There is mild swelling of the right hand. Patient is unable to fully extend the fingers of the right hand, but states that this is chronic for him. There is no pain with attempts to passively extend the fingers of the right hand. There is no tenderness to palpation over the right hand or thumb. There is minimal erythema. There is swelling of the right thumb. No active drainage. No fluctuance. The right upper extremity is warm and well- perfused. - Labs CBC & Chem 7: 10/21/20 06:23 10/20/20 05:29 Labs: Abnormal Lab Results - Last 24 Hours (Table) 10/20/20 10/20/20 10/20/20 Range/Units 05:29 11:45 16:57 RBC (4.30-5.90) m/uL Hgb (13.0-17.5) gm/dL Hct (39.0-53.0) % Plt Count (150-450) k/uL POC Glucose (mg/dL) 220 H 220 H (75-99) mg/dL Hemoglobin A1c 9.9 H (4.0-6.0) % 10/20/20 10/21/20 10/21/20 Range/Units 19:29 06:23 06:56 RBC 3.58 L (4.30-5.90) m/uL Hgb 10.7 L (13.0-17.5) gm/dL Hct 32.5 L (39.0-53.0) % Plt Count 144 L (150-450) k/uL POC Glucose (mg/dL) 256 H 168 H (75-99) mg/dL Hemoglobin A1c (4.0-6.0) % Microbiology - Last 24 Hours (Table) 10/20/20 05:19 Blood Culture - Preliminary Blood No Growth after 24 hours Assessment and Plan (1) Cellulitis of right thumb Current Visit: Yes Status: Acute Code(s): L03.011 - CELLULITIS OF RIGHT FINGER SNOMED Code(s): 80502910452910924 Plan: 1. Continue IV antibiotics. 2. Rest and elevate for swelling. 3. No surgical intervention planned. Patient may follow up as an outpatient on an as needed basis.
--- NOTE | 2020-10-21 10:50 | ECHOF ---
Referral Reason:Orthopnea, PND MEASUREMENTS -------- HEIGHT: 195.6 cm WEIGHT: 123.8 kg BP: 155/75 IVSd: 1.5 cm (0.6 - 1.1) LVIDd: 6.0 cm (3.9 - 5.3) LVPWd: 1.5 cm (0.6 - 1.1) EDV(Teich): 177 ml IVSs: 1.9 cm LVIDs: 4.7 cm LVPWs: 2.2 cm %IVS Thck: 27 % ESV(Teich): 102 ml EF(Teich): 42 % %FS: 21 % SV(Teich): 75 ml LA Diam: 4.6 cm (2.7 - 3.8) RVIDd: 4.0 cm (< 3.3) RA Diam: 4.9 cm LALs A4C: 5.5 cm LAAs A4C: 19.8 cm LAESV A-L A4C: 61 ml LAESV MOD A4C: 57 ml Ao Diam: 3.6 cm (2.0 - 3.7) AV Cusp: 2.1 cm (1.5 - 2.6) EPSS: 1.1 cm MV E Burak: 0.99 m/s MV DecT: 179 ms MV Dec [place]: 5.5 m/s MV A Burak: 1.02 m/s MV E/A Ratio: 0.97 MV PHT: 52 ms LVOT Vmax: 0.80 m/s LVOT maxP.55 mmHg AV Vmax: 1.79 m/s AV maxP.81 mmHg TR Vmax: 3.66 m/s TR maxP.46 mmHg RAP: 5.00 mmHg RVSP: 58.46 mmHg MV EF SLOPE: 61.12 mm/s (70 - 150) MV EXCURSION: 14.45 mm (> 18.000) FINDINGS -------- Sinus rhythm with extra systolic beats. This was a technically difficult study with suboptimal views. The left ventricular size is normal. There is moderate concentric left ventricular hypertrophy. O verall left ventricular systolic function is mildly impaired with, an EF between 45 - 50 %. The right ventricle is moderate to severely enlarged. The left atrium is mildly dilated. The right atrium is mildly enlarged. xx ml of Lumason was utilized for enhancement of images. Interatrial and interventricular septum intact. There is mild aortic valve sclerosis. There is no evidence of aortic regurgitation. There is no e vidence of aortic stenosis. Mild mitral regurgitation is present. Moderate to severe tricuspid regurgitation present. There is moderate to severe pulmonary hypertens ion. The right ventricular systolic pressure, as measured by Doppler, is 58.46mmHg. There is no pulmonic regurgitation present. The aortic root size is normal. IVC Not well visulized. There is no pericardial effusion. CONCLUSIONS -------- 1. The left ventricular size is normal. 2. There is moderate concentric left ventricular hypertrophy. 3. Overall left ventricular systolic function is mildly impaired with, an EF between 45 - 50 %. 4. The right ventricle is moderate to severely enlarged. 5. The left atrium is mildly dilated. 6. The right atrium is mildly enlarged. 7. There is mild aortic valve sclerosis. 8. Mild mitral regurgitation is present. 9. Moderate to severe tricuspid regurgitation present. 10. There is moderate to severe pulmonary hypertension. 11. The right ventricular systolic pressure, as measured by Doppler, is 58.46mmHg. LOCKSTITCH WAISTLINE JOINER: Vanessa Disla RDCS
[2020-10-21 11:34] LABS: African American GFR (CKD) 9.9 (60.0-200.0); Anion Gap 13.6 mmol/L (4.00-12.00); BUN/Creat Ratio 10.15 Ratio (12.00-20.00); Carbon Dioxide 27.4 mmol/L (21.6-31.8); Non-African American GFR(CKD) 8.5 (60.0-200.0); Potassium 5.5 mmol/L (3.5-5.5)
[2020-10-21 11:42] LABS: Glucose,Whole Blood 172 mg/dL (75-99)
--- NOTE | 2020-10-21 12:33 | P.PN ---
Subjective Patient is seen in follow-up for end-stage renal disease. Tolerating dialysis well. No chest pain or shortness of breath. He wants to go home today. Vital signs are stable. General: The patient appeared well nourished and normally developed. HEENT: Head exam is unremarkable. Neck is without jugular venous distension. LUNGS: Lungs are clear to auscultation and percussion. Breath sounds decreased. HEART: Rate and Rhythm are regular. ABDOMEN: Soft, no distention noted. EXTREMITITES: Trace edema. Chronic changes noted. Objective - Vital Signs Vital signs: Vital Signs Temp 98.1 F 10/21/20 05:10 Pulse 87 10/21/20 08:00 Resp 20 10/21/20 05:10 BP 134/78 10/21/20 05:10 Pulse Ox 98 10/21/20 05:10 Intake & Output 10/20/20 10/21/20 10/21/20 18:59 06:59 18:59 Intake Total 200 Balance 200 Intake: Oral 200 Other: # Voids 1 1 - Labs CBC & Chem 7: 10/21/20 06:23 10/21/20 06:23 Labs: Abnormal Lab Results - Last 24 Hours (Table) 10/20/20 10/20/20 10/20/20 Range/Units 05:29 16:57 19:29 RBC (4.30-5.90) m/uL Hgb (13.0-17.5) gm/dL Hct (39.0-53.0) % Plt Count (150-450) k/uL Sodium (135-145) mmol/L Chloride (96-109) mmol/L Anion Gap (4.00-12.00) mmol/L BUN (9.0-27.0) mg/dL Creatinine (0.6-1.5) mg/dL Est GFR (CKD-EPI)AfAm (60.0-200.0) Est GFR (CKD-EPI)NonAf (60.0-200.0) BUN/Creatinine Ratio (12.00-20.00) Ratio Glucose (70-110) mg/dL POC Glucose (mg/dL) 220 H 256 H (75-99) mg/dL Hemoglobin A1c 9.9 H (4.0-6.0) % Phosphorus (2.4-5.1) mg/dL 10/21/20 10/21/20 10/21/20 Range/Units 06:23 06:23 06:56 RBC 3.58 L (4.30-5.90) m/uL Hgb 10.7 L (13.0-17.5) gm/dL Hct 32.5 L (39.0-53.0) % Plt Count 144 L (150-450) k/uL Sodium 132 L (135-145) mmol/L Chloride 91 L (96-109) mmol/L Anion Gap 13.60 H (4.00-12.00) mmol/L BUN 66.0 H (9.0-27.0) mg/dL Creatinine 6.5 H (0.6-1.5) mg/dL Est GFR (CKD-EPI)AfAm 9.9 L (60.0-200.0) Est GFR (CKD-EPI)NonAf 8.5 L (60.0-200.0) BUN/Creatinine Ratio 10.15 L (12.00-20.00) Ratio Glucose 175 H (70-110) mg/dL POC Glucose (mg/dL) 168 H (75-99) mg/dL Hemoglobin A1c (4.0-6.0) % Phosphorus 6.0 H (2.4-5.1) mg/dL 10/21/20 Range/Units 11:31 RBC (4.30-5.90) m/uL Hgb (13.0-17.5) gm/dL Hct (39.0-53.0) % Plt Count (150-450) k/uL Sodium (135-145) mmol/L Chloride (96-109) mmol/L Anion Gap (4.00-12.00) mmol/L BUN (9.0-27.0) mg/dL Creatinine (0.6-1.5) mg/dL Est GFR (CKD-EPI)AfAm (60.0-200.0) Est GFR (CKD-EPI)NonAf (60.0-200.0) BUN/Creatinine Ratio (12.00-20.00) Ratio Glucose (70-110) mg/dL POC Glucose (mg/dL) 172 H (75-99) mg/dL Hemoglobin A1c (4.0-6.0) % Phosphorus (2.4-5.1) mg/dL Microbiology - Last 24 Hours (Table) 10/20/20 05:19 Blood Culture - Preliminary Blood No Growth after 24 hours Assessment and Plan Plan: Assessment: 1. End-stage renal disease maintained on hemodialysis on Monday schedule. 2. Right thumb cellulitis, possibly osteomyelitis maintained on antibiotics. Orthopedic surgery following. 3. Diabetes mellitus. 4. Chronic kidney disease mineral bone disease maintained on phosphate binders.. Phosphorus level 6. 5. Hypertension with chronic kidney disease. Stable. Plan: Currently seen while undergoing hemodialysis. Next treatment Monday per his outpatient schedule. He will be maintained on antibiotics outpatient.
[2020-10-21] MEDS: INSULIN NPH 300 UNIT/3 ML VIAL SQ SCH (13:05)
[2020-10-21] MEDS ORDERED: VANCOMYCIN 2,000 MG in SODIUM CHLORIDE 0.9% 500 ML 500 ML IVPB ONE (13:45)
[2020-10-21 15:00] VITALS: BMI 32.4
[2020-10-21 15:19] VITALS: BP 147/79; PULSE 83; RESP 16; TEMP 97.8
--- NOTE | 2020-10-21 16:49 | P.DS ---
Providers Date of admission: 10/20/20 08:38 Expected date of discharge: 10/21/20 Attending physician: Rosita Pappas MD Consults: 10/20/20 03:11 Consult Physician Routine Consulting Provider: Jairon García Consult Reason/Comments: ?osteo Do you want consulting provider notified?: Yes 10/20/20 04:22 Consult Physician Routine Consulting Provider: Rik Orellana Consult Reason/Comments: ESRD Do you want consulting provider notified?: Yes Primary care physician: [facility] Course: 1. Right Thumb Osteomyelitis 2. ESRD on hemodialysis 3. DM, type II 4. HTN 5. HLD 60 year old man with history of HTN/HLD/DM, ESRD on hemodialysis presented complaining of right thumb pain and right hand swelling. XR of the hand demonstrated degenerative changes in the phalange concerning for trauma versus osteomyelitis. Patient was evaluated by orthopedic surgery to determine need of operative intervention, however, given clinical exam, this was deferred with recommendation for elevation to reduce swelling and to continue IV antibiotics. Patient was started on ceftriaxone 1g q12. BCx remained NGTD for 24 hours. An US of the RUE was done to rule out a blood clot leading to increased swelling. On day of discharge, patient adamantly expressed wish to go home. I told him that ideally we would want him to spend the night and allow an opportunity for our Infectious Disease specialist to consult to determine antibiotic therapy and duration, as well as to determine how to deliver these antibiotics via IV route. Specifically, whether he would need a PICC line or not depending on antibiotic choice. However, patient refused to stay longer due to his plans for Thanksgiving with his family. He did understand the risks of being treated with inadequate coverage for his bone infection, including the risk of it worsening, causing severe sickness or debility. Given the situation, I offered an opportunity to trial vancomycin IV therapy during his dialysis sessions, which he was agreeable to considering and trying, provided it did not interfere with his discharge. Consequently, he was discharged after receiving 2000mg loading dose of vancomycin following dialysis today, with plans to receive 1750mg of IV vancomycin following his dialysis session every Monday, , and Monday. He will receive weekly lab draws of CBC, CMP, CRP, and Vancomycin Level once per week and have these results sent to Infectious Disease specialist, who he was instructed to follow up with early next week for ongoing recommendations. These prescriptions were hand-written on prescription pad. I spent more than 30 minutes preparing this discharge. Assessment: General: non toxic, no distress, appears at stated age, obese Derm: Right thumb missing male with granulation tissue with erythema and tenderness, no unusual ecchymoses, warm, dry Head: atraumatic, normocephalic, symmetric Mouth: no lip lesion, mucus membranes moist Lungs: no accessory muscle use, good air exchange Ext: Right forearm AV fistula with palpable thrill, right hand swelling with right thumb tenderness noted, decreased range of motion for passive flexion of right hand and digits, no gross muscle atrophy, muscle strength 5 out of 5 in all 4 extremities grossly, no contractures Psych: Alert, oriented, appropriate affect Patient Condition at Discharge: Good Plan - Discharge Summary Discharge Rx Participant: No New Discharge Prescriptions: Continue Omeprazole [PriLOSEC] 20 mg PO HS Citalopram Hydrobromide [CeleXA] 40 mg PO HS Atorvastatin [Lipitor] 20 mg PO HS Magnebind 250/300mg 1 tab PO TID Calcium Acetate [PhosLo] 667 mg PO AC-TID Cyclobenzaprine [Flexeril] 10 mg PO HS PRN PRN Reason: Muscle Spasm Furosemide [Lasix] 120 mg PO BID Losartan Potassium [Cozaar] 25 mg PO HS Pregabalin [Lyrica] 100 mg PO BID Relion Novolin N 30 units SQ BID Relion Novolin R 20 units SQ AC-TID Discontinued Amoxic-Pot Clav 500-125 mg [Augmentin 500-125 mg] 1 tab PO Q12HR Discharge Medication List Atorvastatin [Lipitor] 20 mg PO HS 08/24/18 [History] Citalopram Hydrobromide [CeleXA] 40 mg PO HS 08/24/18 [History] Omeprazole [PriLOSEC] 20 mg PO HS 08/24/18 [History] Calcium Acetate [PhosLo] 667 mg PO AC-TID 10/20/20 [History] Cyclobenzaprine [Flexeril] 10 mg PO HS PRN 10/20/20 [History] Furosemide [Lasix] 120 mg PO BID 10/20/20 [History] Losartan Potassium [Cozaar] 25 mg PO HS 10/20/20 [History] Magnebind 250/300mg 1 tab PO TID 10/20/20 [History] Pregabalin [Lyrica] 100 mg PO BID 10/20/20 [History] Relion Novolin N 30 units SQ BID 10/20/20 [History] Relion Novolin R 20 units SQ AC-TID 10/20/20 [History] Follow up Appointment(s)/Referral(s): [facility], [NON-STAFF] - 1-2 Days Chris Mackey MD [Primary Care Provider] - 1-2 days [facility], [REFERRING] - (Antibiotics will be given through dialysis on TTS, this is the company that will be supplying the medication) Jaquan Rojas MD [STAFF PHYSICIAN] - 10/26/20
[2020-10-21 17:36] LABS: Glucose,Whole Blood 101 mg/dL (75-99)
--- NOTE | 2020-10-23 09:34 | CDI ---
Documentation Clarification Form Date: 10/23/20 From: Liz Beach Phone: If you have a question about this query, please contact Estephania Barrera, Labor Relations Officer at [phone] between 8am and 5pm. Admit Date: 10/20/20 Discharge Date: 10/21/20 Patient Name: ADELAIDA MUNIZ Visit Number: [id number] ATTENTION: The Clinical Documentation Specialists (CDI) and [facility] Coding Staff appreciate your assistance in clarifying documentation. Please respond to the clarification below the line at the bottom and electronically sign. The CDI & [facility] Coding staff will review the response and follow-up if needed. Please note: Queries are made part of the Legal Health Record. If you have any questions, please contact the author of this message via ITS. Dear Dr. Jamie Stanford, Osteomyelitis has been documented in the : H&P, both consults, PNs 10/20 &10/21 and the DS. History/Risk Factors: DM Type II, CKD, ophthalmic, peripheral neuropathy, right hand cellulitis, HTN w ESRD Clinical Indicators: He reports that his right hand also seemed more swollen and painful than usual.He reports the pain as intermittent, located at the right thumb, nonradiating, 10 out of 10 at maximal intensity, currently at a 4 out of 10, with no clear alleviating or exacerbating features. Patient also reports subjective fevers at home. Labs: WBC-8.9, A1c-9.9 X-Ray Results: XR of the hand demonstrated degenerative changes in the phalange concerning for trauma versus osteomyelitis. Treatment: IV antibiotics In your professional opinion, please specify the following the acuity of the osteomyelitis of right thumb? Acute Chronic Subacute Unable to Determine Subacute MTDD
== END 2020-10-21 18:07 | disposition home health service (06) | DRG 638 ==
LOC: EC 02:51 → 5NMEDONC 03:11 → OBSVTOIN 08:38
PROVIDERS: ADMIT Internal Medicine; ATTEND Internal Medicine
PROC: 5A1D70Z Performance of Urinary Filtration, Intermittent, Less than 6 Hours Per Day (ICD-10-PCS; principal; 2020-10-21)
DX: E11.69 Type 2 diabetes mellitus with other specified complication (principal); I12.0 Hypertensive chronic kidney disease with stage 5 chronic kidney disease or end stage renal disease; M86.241 Subacute osteomyelitis, right hand; N18.6 End stage renal disease; D63.1 Anemia in chronic kidney disease; E11.22 Type 2 diabetes mellitus with diabetic chronic kidney disease; E11.42 Type 2 diabetes mellitus with diabetic polyneuropathy; E11.39 Type 2 diabetes mellitus with other diabetic ophthalmic complication; Z99.2 Dependence on renal dialysis; Z79.4 Long term (current) use of insulin; L03.011 Cellulitis of right finger; S69.91XA Unspecified injury of right wrist, hand and finger(s), initial encounter; H40.9 Unspecified glaucoma; E83.9 Disorder of mineral metabolism, unspecified; H42 Glaucoma in diseases classified elsewhere; W22.8XXA Striking against or struck by other objects, initial encounter; E78.5 Hyperlipidemia, unspecified; F32.9 Major depressive disorder, single episode, unspecified; E66.9 Obesity, unspecified; Z68.32 Body mass index [BMI] 32.0-32.9, adult; K21.9 Gastro-esophageal reflux disease without esophagitis; G47.30 Sleep apnea, unspecified; Z79.899 Other long term (current) drug therapy; Z71.3 Dietary counseling and surveillance; Z86.69 Personal history of other diseases of the nervous system and sense organs; Z85.828 Personal history of other malignant neoplasm of skin; Z91.81 History of falling; Z98.42 Cataract extraction status, left eye; Z98.41 Cataract extraction status, right eye; Z80.0 Family history of malignant neoplasm of digestive organs; Z80.8 Family history of malignant neoplasm of other organs or systems
CPT/HCPCS: 80048; 80053; 83036; 84100; 85025; 85027; 87040; 90935; 93306; 96361; 96374; 96375; 99284

== ENCOUNTER 2021-09-03 15:26 | Emergency (ER) | payer MEDICARE, BC ==
[2021-09-03 16:09] VITALS: PULSE 0; RESP 0
--- NOTE | 2021-09-03 21:48 | ED ---
General Adult HPI - General Chief complaint: Cardiac Arrest/CPR Stated complaint: cardiac arrest Source: EMS Mode of arrival: EMS - History of Present Illness Initial comments: Patient is a 61-year-old male who presents emergency Department as a cardiopulmonary arrest. He has a history of ESRD on hemodialysis, diabetes, hypertension. Patient was a witnessed arrest at home by son. He states prior to arrest, is complaining of difficulty in breathing. Patient became unresponsive and son started CPR immediately. He called EMS and they arrived. Son completed CPR for approximately 15 minutes on its own. EMS continued CPR via Jalil machine. They administered epinephrine, calcium, bicarb. Patient received a total of 7 rounds of epinephrine in route to the hospital. Initially patient had asystole followed by PA. He never had a shockable rhythm. ROSC was not achieved. Per EMS, patient is not missed dialysis this week. Ananth tube was placed and patient is ventilating adequately. Accu-Chek was 60s. Patient presents in active cardiac arrest. - Related Data Home Medications Medication Instructions Recorded Confirmed Atorvastatin [Lipitor] 20 mg PO HS 08/24/18 10/20/20 Citalopram Hydrobromide [CeleXA] 40 mg PO HS 08/24/18 10/20/20 Omeprazole [PriLOSEC] 20 mg PO HS 08/24/18 10/20/20 Calcium Acetate [PhosLo] 667 mg PO AC-TID 10/20/20 10/20/20 Cyclobenzaprine [Flexeril] 10 mg PO HS PRN 10/20/20 10/20/20 Furosemide [Lasix] 120 mg PO BID 10/20/20 10/20/20 Losartan Potassium [Cozaar] 25 mg PO HS 10/20/20 10/20/20 Magnebind 250/300mg 1 tab PO TID 10/20/20 10/20/20 Pregabalin [Lyrica] 100 mg PO BID 10/20/20 10/20/20 Relion Novolin N 30 units SQ BID 10/20/20 10/20/20 Relion Novolin R 20 units SQ AC-TID 10/20/20 10/20/20 Allergies Allergy/AdvReac Type Severity Reaction Status Date / Time No Known Allergies Allergy Verified 10/20/20 08:26 Review of Systems ROS Statement: Those systems with pertinent positive or pertinent negative responses have been documented in the HPI. Unable to obtain secondary patient's current clinical status. ROS Other: All systems not noted in ROS Statement are negative. Past Medical History Past Medical History: Blood Disorder, Cancer, Diabetes Mellitus, Eye Disorder, GERD/Reflux, Hypertension, Renal Disease, Sleep Apnea/CPAP/BIPAP Additional Past Medical History / Comment(s): HEMODIALYSIS EVERY MONDAY,MONDAY AND MONDAY., FISTULA RIGHT ARM, HX OF SKIN CANCER., USES C-PAP MACHINE, NEUROPATHY IN HANDS AND FEET, OCCASIONAL DIZZINESS AND BALANCE PROBLEMS., HX OF FALLS., GLAUCOMA RIGHT EYE., STENT RIGHT EYE., SORES ON LEGS., WARM ANTIBODY ANEMIA. History of Any Multi-Drug Resistant Organisms: None Reported Past Surgical History: Back Surgery Additional Past Surgical History / Comment(s): PERITONEAL DIALYSIS CATHETERS, DETACHED RETINA MARTHA, GLAUCOMA PROCEDURES, STENT RIGHT EYE., CATARACTS, FISTULA RIGHT ARM. Past Anesthesia/Blood Transfusion Reactions: No Reported Reaction Past Psychological History: Depression Past Alcohol Use History: None Reported Past Drug Use History: None Reported - Past Family History Brother(s) Family Medical History: Cancer Additional Family Medical History / Comment(s): 1 BROTHER STOMACH CANCER. 1 BROTHER THROAT CANCER General Exam - General Exam Comments Initial Comments: General: Unresponsive with Jalil device provided and chest compressions. HEAD: no signs of head trauma. EYES: Pupils are fixed and 4-5 mm bilaterally. ENT: Trachea is midline. HEENT him in place. RESPIRATORY: Breath sounds bilaterally on bagging. HEENT tubes in place. C/V: Pulseless. Active chest compressions. The displaced. ABD: Patient is obese EXT: No obvious deformity. SKIN: Abrasions over the chest from the Jalil device. NEURO: Unresponsive Course Vital Signs 09/03/21 16:03 Pulse Rate 0 L Respiratory 0 L Rate Procedures - Intubation Laryngoscope: other (Glidescope) ET Tube Size: 7.5 Tube Secured Depth (cm): 24 Tube Secured Location: lips Tube Placement Confirmation: visualized tube passing through cords, equal breath sounds bilaterally Patient Tolerated Procedure: no complications Additional Comments: Performed during cardiopulmonary arrest Medical Decision Making - Medical Decision Making Based on the patient's presentation and physical exam, he is inactive cardiopulmonary arrest. ACLS protocol will be followed.ROSC was never achieved by EMS. Due to his history of ESRD on hemodialysis, I have a strong suspicion for hyperkalemia at this time. Patient was immediately bolused 2 A of bicarb, 2 A of calcium chloride, addition to an epinephrine. D50 was also provided due to the mild hypoglycemia. We were able to obtain ROSC for brief periods of time during resuscitation, however always was pulses. Rhythm during this time showed a wide complex sinusoidal pattern, concerning for hyperkalmeia. Peripheral norepi drip was started. During resuscitation, intubation was completed was glidscope successfully. [place] frothy sputum followed by dark red sputum came through the ET tube during resuscitation. Attempts were made to speak with family regarding CODE STATUS, however these were unsuccessful. Patient received a total of 8 A calcium chloride, 3 A of bicarb, as well as 4 pushes of epinephrine over the course of 35 minutes in our emergency department. As stated above, return of spontaneous circulation was obtained multiple times for brief moments. We're unable to obtain an EKG. Norepi drip was started peripherally. Patient is difficult IV access. Following this prolonged arrest, for over a total of 90 minutes (35 minutes in the department, 60 minutes outside of the department), The decision was made to cease resuscitation after losing pulses and being unable to reobtain them. Final rhythm was PEA. Time of was 1603. Patient arrived in the department at 1528. Patient's son presented to the department following rest and I informed him of his father's . I answered all questions that he had. I spoke with the medical payment poster and the case was refused. Attempts to contact the patient's PCP, Dr. Lin, who did not call back. Contact information was provided to the medical payment poster. Patient is following prolonged cardiopulmonary arrest of unknown etiology. Critical Care Time Critical Care Time: Yes Total Critical Care Time: 35 Critical Care Time: Upon my evaluation, this patient had a high probability of imminent or life- threatening deterioration due to cardiopulmonary arrest, which required my direct attention, intervention, and personal management. I have personally provided 35 minutes of critical care time exclusive of time spent on separately billable procedures. Time includes review of laboratory data, radiology results, discussion with consultants, and monitoring for potential decompensation. Interventions were performed as documented in my note. Disposition Clinical Impression: Cardiopulmonary arrest, Disposition: Referrals: Francis Juarez MD [Primary Care Provider] - 1-2 days Preliminary Cause of : Cardiopulmonary arrest, unknown cause
== END 2021-09-03 19:00 | disposition expired ==
LOC: EC 15:26
DX: I46.9 Cardiac arrest, cause unspecified (principal); E11.22 Type 2 diabetes mellitus with diabetic chronic kidney disease; I12.0 Hypertensive chronic kidney disease with stage 5 chronic kidney disease or end stage renal disease; E11.39 Type 2 diabetes mellitus with other diabetic ophthalmic complication; E11.40 Type 2 diabetes mellitus with diabetic neuropathy, unspecified; N18.6 End stage renal disease; H40.9 Unspecified glaucoma; K21.9 Gastro-esophageal reflux disease without esophagitis; Z99.2 Dependence on renal dialysis; Z79.899 Other long term (current) drug therapy
CPT/HCPCS: 31500; 99291